=== PATIENT | female | born 1960 | race Caucasian/White ===

== ENCOUNTER → 2016-06-02 | Day surgery (SDC) | payer OTHER ==
[~2016-06-02] MED LIST: ABIL5TAB6 PO; ACETAMINOPHEN 1000 MG/100 ML VIAL IV ONE; BUPIVACAINE/EPINEPHRINE 0.25% 50 ML VIAL ONE; BUPR-175 PO; CEPH-460 PO; FIORIC PO; HYDR-2768 PO; HYDRO25 PO; ISOSULFAN BLUE 50 MG/5 ML VIAL SQ ONE; LACTATED RINGER'S 1000 ML INJ 1,000 ML ONE; LIDOCAINE 1%/EPINEPHrine 1:100,000 SOLN 50 ML VIAL ONE; MIDAZOLAM HCL 2 MG/2 ML VIAL ONE; ONDANSETRON HCL 4 MG/2 ML VIAL IV PUSH ONE; PROPOFOL 100 MG/10 ML INJ IV ONE; REME30TA PO; SODIUM CHLOR 0.9% 250 ML INJ 250 ML IV ONE; TOPA100T8 PO; TOPR50TA PO; VANCOMYCIN HCL 1000 MG VIAL ONE
--- NOTE | 2016-06-05 12:51 | MP ---
cc: DAVID BASILIO M.D.,ESTUARDO CHRISTIANSEN,ARIELLE LOZADA DATE OF SURGERY: 06/02/2016 PREOPERATIVE DIAGNOSIS Invasive lobular carcinoma, right breast. POSTOPERATIVE DIAGNOSIS Invasive lobular carcinoma, right breast. ANESTHESIA LMA. SURGEON Dr. Basilio. ESTIMATED BLOOD LOSS 30 mL. FLUIDS 1050 mL crystalloid. PROCEDURE Excision sentinel lymph node right axilla and needle localized wide local excision central portion of the breast including nipple-areolar complex. SPECIMENS [place] lymph node right axilla x1, non sentinel node right axilla x1 and right breast needle localized lumpectomy specimen with nipple-areolar complex to pathology. PROCEDURE IN DETAIL The patient was seen in the department of radiology where she underwent needle localization procedure with ultrasound guidance. She then underwent injection with technetium 99 sulfur colloid. 90 minutes later she returned to the Department of Nuclear Medicine where imaging demonstrated sentinel node in the right axilla. This was marked by the radiologist and the patient was brought back to the holding area. The patient was then taken to the operating room and placed on the operating table in the supine position. After an adequate level of laryngeal mask anesthesia was instituted the right breast was prepped and draped in the field. Time-out was taken confirming the correct patient, site and procedures to be performed. Incision was made in the axilla between the two indicated cruz and carried down into the subcutaneous tissues. Utilizing the Gamma probe, the sentinel node was identified as was an adjacent node. These were both removed. Once dissecting this free, one node had activity above background and a second node did not. Careful examination of the axilla revealed no further activity above background. The sentinel node was sent separate from the non-sentinel node as well as axillary tissue which was submitted in a third cup. The wound was made hemostatic and then closed in two layers with interrupted 3-0 Vicryl suture and 5-0 PDS in a running subcuticular fashion. Attention was then turned to the breast. Skin and subcutaneous tissue was infiltrated with local anesthetic. An elliptical incision was made including the nipple-areolar complex and the wire. Dissection was carried almost straight down for a distance of at least 8-10 cm. This was well beyond the 6-7 cm noted on the MRI for suspicious tissue. The specimen was completely excised including the needle and the nipple-areolar complex and the specimen was oriented with silk sutures. The wound was made hemostatic and then closed in two layers with interrupted 2-0 Vicryl suture and 5-0 PDS in a running subcuticular fashion. The wound was dressed with Steri-Strips as was the axilla. She tolerated the procedure well. She was taken back to the recovery room in stable condition. Sponge, needle and instrument counts were reported to be correct. The patient tolerated the procedure well. MD SANDIP Allen/TLL /4:42 PM /12:37 PM
== END | disposition home or self-care (01) ==
LOC: ESDC 06:13
PROVIDERS: ATTEND Surgery Trauma Surgery
DX: C50.911 Malignant neoplasm of unspecified site of right female breast (principal)
CPT/HCPCS: 00400; 01610; 19125; 38525; 88307; J0131; J2250; J2405; J3010; J3370; J7050; J7120; Q9968

== ENCOUNTER → 2016-06-14 | Day surgery (SDC) | payer OTHER ==
[~2016-06-14] MED LIST changes: -ACETAMINOPHEN 1000 MG/100 ML VIAL IV ONE; -BUPIVACAINE/EPINEPHRINE 0.25% 50 ML VIAL ONE; +HEPARIN SODIUM - IV 10,000 UNITS/10 ML VIAL ONE; -ISOSULFAN BLUE 50 MG/5 ML VIAL SQ ONE; +LIDOCAINE 1%/EPINEPHrine 1:100,000 SOLN 20 ML VIAL ONE; -LIDOCAINE 1%/EPINEPHrine 1:100,000 SOLN 50 ML VIAL ONE; -PROPOFOL 100 MG/10 ML INJ IV ONE; +PROPOFOL 200 MG/20 ML AMP IV ONE; +SODIUM CHLOR 0.9% 250 ML BAG IV ONE; -SODIUM CHLOR 0.9% 250 ML INJ 250 ML IV ONE; +SODIUM CHLORIDE 0.9% 20 ML VIAL ONE; +VANCOMYCIN 500 MG VIAL ONE
--- NOTE | 2016-06-16 06:22 | MP ---
cc: DAVID BASILIO M.D., ALVARO MD ESQUIVEL, PATRICIA C. MD DATE OF SURGERY 06/14/2016 PROCEDURE [id number] placement. PROCEDURE IN DETAIL The patient was taken to the operating room and placed on the operating table in the supine position. After an adequate level of IV sedation was begun, the chest and neck were prepped and draped bilaterally. A time-out was taken confirming the correct patient site and procedure to be performed. The skin and subcutaneous tissue was infiltrated with local anesthetic in the left subclavian region and a needle was passed and the vein was accessed on the first attempt. A guidewire was passed and seen to smoothly curve into the superior vena cava. An Oqglds-C-Jtib pocket was created inferior to this after infiltrating this with local anesthetic. An incision was made in the skin and the pocket created with electrocautery. The catheter was brought through a short tunnel from the exit site of the wire to the pocket and an introducer and sheath then passed over the guidewire. Under fluoroscopic guidance, this was seen to smoothly course into the superior vena cava. The introducer and guidewire were removed and the catheter passed down the sheath. The catheter was held up and the patient was found to have clearly venous access as the blood level increased and decreased with respirations and did not come out the end of the catheter. The sheath was peeled away and the catheter trimmed to length. The port was fixed to the catheter and the hub snapped over this. The port was fixed in the pocket with two 2-0 Prolene sutures. The port was accessed and good blood return was achieved. The tip of the catheter was seen to be in the superior vena cava after trimming the catheter. The port was re-flushed with 5 mL of 100 units per mL heparinized saline. The port pocket was reinspected and found to be clean and dry. The port pocket and the percutaneous puncture site were both closed with interrupted buried 3-0 Vicryl suture. The skin was closed over the port pocket with 5-0 PDS in a running subcuticular fashion. Both wounds were dressed with Steri-Strips. STAT chest x-ray is pending at the time of this dictation. The patient tolerated the procedure well. David Basilio MD MAF/SSB /12:17 PM /6:08 AM
== END | disposition home or self-care (01) ==
LOC: ESDC 08:44
PROVIDERS: ATTEND Surgery Trauma Surgery
DX: C50.911 Malignant neoplasm of unspecified site of right female breast (principal)
CPT/HCPCS: 00532; 36561; 77001; C1788; J1644; J2250; J2405; J3010; J3370; J7050; J7120

== ENCOUNTER 2016-06-26 20:41 | Emergency (ER) | payer OTHER ==
[~2016-06-26] VITALS: Ht 157.5 cm; Wt 85.0 kg
[~2016-06-26 20:41] MED LIST changes: -CEPH-460 PO; -HEPARIN SODIUM - IV 10,000 UNITS/10 ML VIAL ONE; -LACTATED RINGER'S 1000 ML INJ 1,000 ML ONE; -LIDOCAINE 1%/EPINEPHrine 1:100,000 SOLN 20 ML VIAL ONE; -MIDAZOLAM HCL 2 MG/2 ML VIAL ONE; -ONDANSETRON HCL 4 MG/2 ML VIAL IV PUSH ONE; -PROPOFOL 200 MG/20 ML AMP IV ONE; -SODIUM CHLOR 0.9% 250 ML BAG IV ONE; -SODIUM CHLORIDE 0.9% 20 ML VIAL ONE; -VANCOMYCIN 500 MG VIAL ONE; -VANCOMYCIN HCL 1000 MG VIAL ONE
[2016-06-26 20:43] VITALS: BP 161/93; PULSE 118; RESP 18; TEMP 99.1; O2SAT 98
[2016-06-26] MEDS ORDERED: CEPH-460 PO (21:15)
--- NOTE | 2016-06-26 21:22 | PD ---
HPI Chief Complaint: Wound/Suture/Staple Re-Check Time Seen by Provider: 21:18 Travel History International Travel<30 days: No Contact w/Intl Traveler<30days: No Traveled to known affect area: No History of Present Illness HPI 56-year-old white female presents to emergency department after having a lumpectomy of the right breast on 06/02/[address] Basilio. She states that an area on her right breast where she had a complete excision of her area left she noted a opening in incision with a watery and slightly blood-tinged drainage today. She states that it was a large gush of fluid initially but now it has only a small amount of drainage. She denies any fever or chills. No significant tenderness. She just started chemotherapy last week. She has had some nausea and vomiting earlier but that has been improving. She has had no abdominal pain. Some diarrhea. PFSH Past Medical History Anxiety: No Depression: No Heart Rhythm Problems: Yes (MURMUR/MVP) Cancer: No Cardiovascular Problems: Yes (HTN/MITRAL VALVE PROLAPSE) High Cholesterol: Yes Chest Pain: Yes Congestive Heart Failure: No Diminished Hearing: No Endocrine: No Genitourinary: No Hypertension: Yes Immune Disorder: No Implanted Vascular Access Dvce: No Psychiatric: No Reproductive: No Respiratory: No Immunizations Current: Yes Migraines: Yes Tetanus Vaccination: Unknown Influenza Vaccination: Yes Menopausal: Yes : 4 Para: 3 Miscarriage: 1 Past Surgical History Section: Yes (X2) Cholecystectomy: Yes Coronary Artery Bypass Graft: No Other Surgery: Yes (BTL and right shoulder surgery) Family History Family Myocardial Infarction: No Social History Alcohol Use: Yes (OCCASIONAL) Tobacco Use: No (HX OF) Substance Use: No Allergies-Medications (Allergen,Severity, Reaction): Coded Allergies: Compazine (Verified Allergy, Severe, Seizures, 06/26/16) Penicillin (Verified Allergy, Severe, Seizures, 06/26/16) Tetanus Toxoid (Verified Allergy, Severe, Seizures, 06/26/16) *MDRO Multi-Drug Resistant Organism (Verified Adverse Reaction, Unknown, ) 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 Reported Meds & Prescriptions Reported Meds & Active Scripts Active Keflex (Cephalexin) 500 Mg Cap 500 Mg PO Q6H Reported Vistaril 25 Mg Cap (Hydroxyzine Pamoate) 25 Mg Cap 25 Mg PO BID Remeron 30 mg (Mirtazapine) 30 Mg Tab 1 Tab PO HS Topamax (Topiramate) 100 Mg Tab 100 Mg PO BID Fioricet Tab (Acetaminophen/Butalbital/Caffeine) 1 Tab 1 Tab PO BID Abilify 5 mg (Aripiprazole) 5 Mg Tab 15 Mg PO DAILY Wellbutrin (Bupropion HCl) 75 Mg Tab 75 Mg PO BID Hctz (Hydrochlorothiazide) 25 Mg Tab 25 Mg PO DAILY Toprol Xl (Metoprolol Succinate) 50 Mg Tabcr 50 Mg PO DAILY Review of Systems Except as stated in HPI: all other systems reviewed are Neg General / Constitutional: No: Fever, Chills Eyes: No: Blurred Vision, Photophobia HENT: No: Lightheadedness, Sore Throat Cardiovascular: No: Chest Pain or Discomfort, Palpitations Respiratory: No: Cough, Shortness of Breath Gastrointestinal: Positive: Nausea, Vomiting, Diarrhea, No: Abdominal Pain Genitourinary: No: Dysuria, Hematuria Musculoskeletal: No: Arthralgias, Limited ROM Skin: No Rash, No Breast Tenderness, No Breast Swelling Physical Exam Narrative The patient's examined in the presence of Sandy the nurse. GENERAL: This is a well-nourished, well-developed patient, in no apparent distress. SKIN: No rashes, ecchymoses or lesions. Warm and dry. Examination of the right breast reveals lumpectomy with complete excision of the area left. She has a small central open area of the incision line with a small amount of serosanguineous drainage. There is no erythema, warmth or tenderness. No fluctuance or pointing. HEAD: Atraumatic. Normocephalic. EYES: PERRL, EOMI, no discharge or injection. No scleral icterus. EARS: Clear NOSE: Nasal turbinates appear normal. THROAT: Mucosa pink and moist. Airway patent. NECK: Trachea midline. supple, moves head freely. LUNGS: Clear to auscultation. CV: Regular in rhythm. ABDOMEN: Soft nontender. EXT: No clubbing cyanosis or edema. Data Data Last Documented VS Vital Signs Date Time Temp Pulse Resp B/P Pulse Ox O2 Delivery O2 Flow Rate FiO2 06/26/16 20:43 99.1 118 18 161/93 98 Room Air Orders Cephalexin (Keflex) (06/26/16 21:30) [facility] Medical Decision Making Medical Screen Exam Complete: Yes Emergency Medical Condition: Yes Medical Record Reviewed: Yes Differential Diagnosis MDM: High Differential diagnoses: Abscess, folliculitis, cellulitis, lymphangitis, abrasion, contact dermatitis, seroma Narrative Course Patient appears to have an opening in her incision of a draining seroma. It does not look infected at this point. We will cover her with Keflex. She is given 500 mg by mouth now and a weeks' supply. She is advised to follow-up with Dr. Basilio her surgeon she is to call the morning for appointment in a few days. Diagnosis Primary Impression: right breast seroma Patient Instructions: General Instructions Additional Instructions: Rest. Monitor for any increasing redness, pain or swelling. Keflex. Call Dr. Basilio's office in the morning for an appointment in a few days for recheck. Return to the ER if any problems. Med/Other Pt SpecificInfo: Prescription(s) given Scripts Cephalexin (Keflex)500 Mg Qff745 Mg PO Q6H #28 CAP Prov:Ibeth Eisenberg DO 06/26/16 Disposition: 01 DISCHARGE HOME Condition: Stable Guilherme Denise June 26, 2016 21:22
[2016-06-26] MEDS ORDERED: CEPHALEXIN MONOHYDRATE 500 MG CAP PO ONE (21:30)
== END 2016-06-26 21:44 | disposition home or self-care (01) ==
LOC: NEPK 20:41
DX: L76.34 Postprocedural seroma of skin and subcutaneous tissue following other procedure (principal); R11.2 Nausea with vomiting, unspecified; R19.7 Diarrhea, unspecified; I10 Essential (primary) hypertension; E78.00 Pure hypercholesterolemia, unspecified; Z98.890 Other specified postprocedural states; Z86.79 Personal history of other diseases of the circulatory system; Z86.69 Personal history of other diseases of the nervous system and sense organs
CPT/HCPCS: 99283

== ENCOUNTER 2017-01-18 19:08 | Emergency (ER) | payer OTHER ==
[~2017-01-18] VITALS: Ht 152.4 cm; Wt 82.0 kg
[~2017-01-18 19:08] MED LIST changes: +CEPH-460 PO
[2017-01-18 19:11] VITALS: BP 150/89; PULSE 93; RESP 16; TEMP 99.2; O2SAT 98
[2017-01-18] MEDS ORDERED: SODIUM CHLOR 0.9% 1000 ML INJ 1,000 ML IV SCH (19:51)
[2017-01-18] MEDS ORDERED: PRED20 PO (19:56)
[2017-01-18] MEDS ORDERED: DIPH25CA PO (19:56)
--- NOTE | 2017-01-18 19:57 | PD ---
HPI Chief Complaint: Allergic/Adverse Reaction Time Seen by Provider: 19:51 Travel History International Travel<30 days: No Contact w/Intl Traveler<30days: No History of Present Illness HPI 57 yo F c/o rash since yesterday. pt started using a new soap three days prior. no dyspnea or sensation of throat fullness. rash is itchy and maringally improved with benadryl cream. no fever. no pain with rash. no n/v/d. pt receiving rtx for breast ca. stopped ctx three months prior. PFSH Past Medical History Anxiety: No Depression: No Heart Rhythm Problems: Yes (MURMUR/MVP) Cancer: No Cardiovascular Problems: Yes (HTN/MITRAL VALVE PROLAPSE) High Cholesterol: Yes Chest Pain: Yes Congestive Heart Failure: No Diminished Hearing: No Endocrine: No Genitourinary: No Hypertension: Yes Immune Disorder: No Implanted Vascular Access Dvce: No Psychiatric: No Reproductive: No Respiratory: No Immunizations Current: Yes Migraines: Yes Menopausal: Yes : 4 Para: 3 Miscarriage: 1 Past Surgical History Section: Yes (X2) Cholecystectomy: Yes Coronary Artery Bypass Graft: No Other Surgery: Yes (BTL and right shoulder surgery) Social History Alcohol Use: Yes (OCCASIONAL) Tobacco Use: No (HX OF) Substance Use: No Allergies-Medications (Allergen,Severity, Reaction): Coded Allergies: penicillin G (Unverified Allergy, Severe, Seizures, 01/18/17) prochlorperazine (Unverified Allergy, Severe, Seizures, 01/18/17) tetanus toxoid, adsorbed (Unverified Allergy, Severe, Seizures, 01/18/17) *MDRO Multi-Drug Resistant Organism (Verified Adverse Reaction, Unknown, 01/18/17) 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 Reported Meds & Prescriptions Reported Meds & Active Scripts Active Prednisone 20 Mg Tab 40 Mg PO DAILY 4 Days Take 40 mg (2 tablets) daily for 5 days Diphenhydramine (Diphenhydramine HCl) 25 Mg Cap 25 Mg PO Q4H PRN Keflex (Cephalexin) 500 Mg Cap 500 Mg PO Q6H Reported Vistaril 25 Mg Cap (Hydroxyzine Pamoate) 25 Mg Cap 25 Mg PO BID Remeron 30 mg (Mirtazapine) 30 Mg Tab 1 Tab PO HS Topamax (Topiramate) 100 Mg Tab 100 Mg PO BID Fioricet Tab (Acetaminophen/Butalbital/Caffeine) 1 Tab 1 Tab PO BID Abilify 5 mg (Aripiprazole) 5 Mg Tab 15 Mg PO DAILY Wellbutrin (Bupropion HCl) 75 Mg Tab 75 Mg PO BID Hctz (Hydrochlorothiazide) 25 Mg Tab 25 Mg PO DAILY Toprol Xl (Metoprolol Succinate) 50 Mg Tabcr 50 Mg PO DAILY Review of Systems Except as stated in HPI: all other systems reviewed are Neg General / Constitutional: No: Fever Skin: Positive Lesions Physical Exam Narrative GENERAL: 57 yo F pleasant, wnwd, nad SKIN: Warm and dry. erythematous blanching well demarcated rash about the face, trunk and upper extremities. HEAD: Atraumatic. Normocephalic. EYES: Pupils equal and round. No scleral icterus. No injection or drainage. ENT: No nasal bleeding or discharge. Mucous membranes pink and moist. posterior oropharynx widely patent. NECK: Trachea midline. No JVD. CARDIOVASCULAR: Regular rate and rhythm. RESPIRATORY: No accessory muscle use. Clear to auscultation. Breath sounds equal bilaterally. GASTROINTESTINAL: Abdomen soft, non-tender, nondistended. Hepatic and splenic margins not palpable. MUSCULOSKELETAL: Extremities without clubbing, cyanosis, or edema. No obvious deformities. NEUROLOGICAL: Awake and alert. No obvious cranial nerve deficits. Motor grossly within normal limits. Five out of 5 muscle strength in the arms and legs. Normal speech. PSYCHIATRIC: Appropriate mood and affect; insight and judgment normal. Data Data Last Documented VS Vital Signs Date Time Temp Pulse Resp B/P (MAP) Pulse Ox O2 Delivery O2 Flow Rate FiO2 01/18/17 22:06 76 18 114/64 (81) 99 01/18/17 21:00 Room Air 01/18/17 19:11 99.2 VS reviewed Orders Orders Ecg Monitoring (01/18/17 19:51) Iv Access Insert/Monitor (01/18/17 19:51) Oximetry (01/18/17 19:51) Diphenhydramine Inj (Benadryl Inj) (01/18/17 20:00) Methylprednisolone So Succ Inj (Solumedr (01/18/17 20:00) Famotidine Inj (Pepcid Inj) (01/18/17 20:00) Sodium Chlor 0.9% 1000 Ml Inj (Ns 1000 M (01/18/17 19:51) Sodium Chloride 0.9% Flush (Ns Flush) (01/18/17 20:00) Ed Discharge Order (01/18/17 21:05) Heparin Central Flush (Heparin Central F (01/18/17 21:30) Heparin Central Flush (Heparin Central F (01/18/17 22:00) MDM Medical Decision Making Medical Screen Exam Complete: Yes Emergency Medical Condition: Yes Medical Record Reviewed: Yes Differential Diagnosis anaphylaxis, anaphylactic shock, allergic reaction Narrative Course pt will receive benadryl, solumedrol and pepcid here and be monitored for approx 3 hours by MARTHA in [place]. if patient improves as is anticipated discharge with outpatient follow up considered most reasonable course of action. Diagnosis Primary Impression: Allergic reaction Qualified Codes: T78.40XA - Allergy, unspecified, initial encounter Med/Other Pt SpecificInfo: Prescription(s) given Scripts Prednisone (Prednisone) 20 Mg Tab 40 MG PO DAILY for 4 Days, #8 TAB 0 Refills Take 40 mg (2 tablets) daily for 5 days Prov: Erickson Jacobs MD 01/18/17 Diphenhydramine (Diphenhydramine) 25 Mg Cap 25 MG PO Q4H Y for ALLERGIES, #20 CAP 0 Refills Prov: Erickson Jacobs MD 01/18/17 Disposition: 01 DISCHARGE HOME Condition: Stable Erickson Jacobs MD Jan 18, 2017 19:57
[2017-01-18] MEDS ORDERED: FAMOTIDINE 20 MG/2 ML VIAL IV PUSH ONE (20:00)
[2017-01-18] MEDS ORDERED: SODIUM CHLORIDE 0.9% FLUSH 10 ML FLUSH IV FLUSH PRN (20:00)
[2017-01-18] MEDS ORDERED: diphenhydrAMINE HCL 50 MG/ML VIAL IVP ONE (20:00)
[2017-01-18] MEDS ORDERED: methylPREDNISolone SOD SUCC 125 MG/2 ML VIAL IV PUSH ONE (20:00)
--- NOTE | 2017-01-18 20:23 | PD ---
Physical Exam Narrative Patient was signed out to me by Dr. Jacobs's documentation for full H&P. Briefly patient is a 57-year-old female comes in complaining of a pruritic rash that began yesterday. Patient reports 3 days ago she started using a new soap. Patient's only other known new allergen exposures she started new long-term chemotherapy medication for breast cancer 3 weeks ago and has had no issues with that as of yet. Patient denies any difficulty breathing or sensation of throat closing. Patient she been using [id number] Benadryl cream that does help some. Patient states rash continues to spread. Denies anything making it worse. GENERAL: Well-developed, overly nourished, in no acute distress, and non-ill appearing. SKIN: Blanching rash noted over her face chest and arms. Patient also has a radiation burn no anterior chest wall. There is no sign of cellulitis, folliculitis, gangrene, or secondary infection. HEAD: Atraumatic. Normocephalic. EYES: Pupils equal and round. EOMI. No scleral icterus. No injection or drainage. ENT: No nasal bleeding or discharge. Mucous membranes pink and moist. NECK: Trachea midline. Supple. No nuclear rigidity. CARDIOVASCULAR: Regular rate and rhythm. No murmur appreciated. RESPIRATORY: No accessory muscle use. No respiratory distress. Clear to auscultation. Breath sounds equal bilaterally. No stridor. Patient speaking in full sentences without difficulty. MUSCULOSKELETAL: No obvious deformities. No clubbing. No cyanosis. No edema. Full range of motion. NEUROLOGICAL: Awake and alert. No obvious cranial nerve deficits. Motor grossly within normal limits. Normal speech. PSYCHIATRIC: Appropriate mood and affect; insight and judgment normal. Data Data Last Documented VS Vital Signs Date Time Temp Pulse Resp B/P (MAP) Pulse Ox O2 Delivery O2 Flow Rate FiO2 01/18/17 22:06 76 18 114/64 (81) 99 01/18/17 20:40 Room Air 01/18/17 19:11 99.2 Orders Orders Ecg Monitoring (01/18/17 19:51) Iv Access Insert/Monitor (01/18/17 19:51) Oximetry (01/18/17 19:51) Diphenhydramine Inj (Benadryl Inj) (01/18/17 20:00) Methylprednisolone So Succ Inj (Solumedr (01/18/17 20:00) Famotidine Inj (Pepcid Inj) (01/18/17 20:00) Sodium Chlor 0.9% 1000 Ml Inj (Ns 1000 M (01/18/17 19:51) Sodium Chloride 0.9% Flush (Ns Flush) (01/18/17 20:00) Ed Discharge Order (01/18/17 21:05) Heparin Central Flush (Heparin Central F (01/18/17 21:30) Heparin Central Flush (Heparin Central F (01/18/17 22:00) MDM Supervised Visit with MARTHA: No Narrative Course Appears allergic reaction. There is no airway involvement nor difficulty swallowing. Patient looks great. The patient is tolerating fluids. The patient looks great, the findings are minimal and due to non-progression of symptoms here the patient is safe to discharge home. The patient feels comfortable with plan and will return immediately if symptoms begin to worsen. The rash is not consistent with erythema multiforme at this time. The patient is to continue histamine 1 and 2 blockade as well as steroids. The patient was instructed to avoid potential precipitating factor and to follow up with their regular physician and or follow up with airways control specialist for definitive allergy testing. The patient agrees with plan. Patient in no obvious distress upon re-evaluation. Any questions/concerns in reference to patient diagnosis/condition discussed and clarified prior to patient's discharge. Reinforced sheer importance of close follow up with patient 's primary physician or primary care clinic. Instructed patient to return to ED immediately, if symptoms return/worsen. Patient showed understanding of above instructions. Further instructions and recommendations were detailed in discharge paperwork. Patient ambulated without difficulty out of ED at discharge. Diagnosis Primary Impression: Allergic reaction Qualified Codes: T78.40XA - Allergy, unspecified, initial encounter Scripts Prednisone (Prednisone) 20 Mg Tab 40 MG PO DAILY for 4 Days, #8 TAB 0 Refills Take 40 mg (2 tablets) daily for 5 days Prov: Erickson Jacobs MD 01/18/17 Diphenhydramine (Diphenhydramine) 25 Mg Cap 25 MG PO Q4H Y for ALLERGIES, #20 CAP 0 Refills Prov: Erickson Jacobs MD 01/18/17 Disposition: 01 DISCHARGE HOME Condition: Stable Ayaan Martins Jan 18, 2017 20:23
[2017-01-18 20:40] VITALS: BP 132/84; PULSE 89; RESP 20; O2SAT 99
[2017-01-18 21:00] VITALS: BP 113/58; PULSE 76; RESP 20; O2SAT 100
[2017-01-18 22:06] VITALS: BP 114/64
== END 2017-01-18 22:18 | disposition home or self-care (01) ==
LOC: NEPD 19:08
DX: T78.40XA Allergy, unspecified, initial encounter (principal); R21 Rash and other nonspecific skin eruption; C50.919 Malignant neoplasm of unspecified site of unspecified female breast
CPT/HCPCS: 96361; 96374; 96375; 99284; J1200; J1642; J2930; J7030